=== PATIENT | male | born 1975 | race Two or more races ===

== ENCOUNTER 2018-09-30 01:24 | Emergency (ER) | payer SELFPAY ==
[~2018-09-30] VITALS: Ht 180.3 cm; Wt 88.5 kg
[2018-09-30 01:36] VITALS: BP 105/64
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
[2018-09-30] MEDS ORDERED: cefTRIAXone IM 250 MG VIAL IM ONE (02:00)
[2018-09-30] MEDS ORDERED: AZITHROMYCIN 250 MG TABLET. PO ONE (02:00)
[2018-09-30 02:24] LABS: BILIRUBIN,URINE SMALL (NEG); CLARITY,URINE TURBID; COLOR,URINE AMBER; NITRITE,URINE NEGATIVE (NEG); PH,URINE 5.5; PROTEIN,URINE NEGATIVE (NEG-TRACE); UROBILINOGEN,URINE 0.2 mg/dL (0.2 mg/dL)
[2018-09-30 02:31] LABS: BACTERIA,URINE FEW /HPF (0-FEW); RBC,URINE OCC /HPF (0-2); SQUAMOUS EPITHELIAL CELL,UR OCC /LPF; WBC,URINE TNTC /HPF (0-4)
[2018-09-30 02:32] LABS: SPERM,URINE PRESENT /HPF
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
[2018-09-30] MEDS ORDERED: DOXY100T PO (03:09)
[2018-09-30] MEDS ORDERED: MELO7.5T29 PO (03:09)
== END 2018-09-30 03:30 | disposition home or self-care (01) ==
LOC: ER 01:24
DX: S00.83XA Contusion of other part of head, initial encounter (principal); N39.0 Urinary tract infection, site not specified; Z20.2 Contact with and (suspected) exposure to infections with a predominantly sexual mode of transmission; F17.210 Nicotine dependence, cigarettes, uncomplicated; W22.8XXA Striking against or struck by other objects, initial encounter; Y93.89 Activity, other specified; Y92.89 Other specified places as the place of occurrence of the external cause; Y99.8 Other external cause status
CPT/HCPCS: 36415; 70450; 81001; 87086; 87491; 87591; 96372; 99284; J0696; Q0144